=== PATIENT | male | born 1935 | race Caucasian/White ===

== ENCOUNTER 2017-02-19 12:00 | Emergency (ER) | payer BC ==
[2017-02-19 12:23] VITALS: BP 155/75
--- NOTE | 2017-02-19 12:45 | UC ---
Respiratory Complaint HPI - HPI Summary HPI Summary: This is an 81 yo gentleman with pulmonary fibrosis with associated pulmonary HTN and CHF who presents with complaints of arthralgias and SOB. Symptoms started last night. Some mild chills. The arthralgias are improved today. He does have a mild cough. He reports chronic hemoptysis, volume has increased slightly. No LE edema or weight gain. Reports decreased exercise tolerance over the last couple of days. No sick contacts. No CP. No GI sxs. - History of Current Complaint Chief Complaint: UCRespiratory Stated Complaint: SOB,CONGESTION - Allergies/Home Medications Allergies/Adverse Reactions: Allergies Allergy/AdvReac Type Severity Reaction Status Date / Time No Known Allergies Allergy Verified 02/19/17 12:12 Home Medications: Home Medications Ascorbic Acid TAB* [Vitamin C TAB*] 500 mg PO DAILY 02/19/17 [History Confirmed 02/19/17] Aspirin Low Dose CHEW TAB* [Aspirin Low Dose TAB*] 81 mg PO DAILY 02/19/17 [ History Confirmed 02/19/17] Atorvastatin* [Lipitor 20 MG*] 20 mg PO DAILY 02/19/17 [History Confirmed ] Bimatoprost 0.01% OPHTH (NF) [Lumigan 0.01% OPHTH (NF)] 1 drop BOTH EYES QPM [History Confirmed 02/19/17] Calcium Carbonate-Vitamin D [Calcium 600 + D 600-400 mg-Unit] 1 tab PO BID 02/19 [History Confirmed 02/19/17] Cholecalciferol TAB* [Vitamin D TAB*] 1,000 unit PO DAILY 02/19/17 [History Confirmed 02/19/17] Metoprolol Succinate [Toprol Xl] 25 mg PO DAILY 02/19/17 [History Confirmed ] Multiple Vitamins W/ Minerals [Centrum] 1 tab PO DAILY 02/19/17 [History Confirmed 02/19/17] Multiple Vitamins W/ Minerals [Ocuvite Eye Health Formul] 1 cap PO DAILY [History Confirmed 02/19/17] Saxis-3 Fatty Acids [Fish Oil] 1,000 mg PO DAILY 02/19/17 [History Confirmed ] Sildenafil (PULMONARY)(NF) [Revatio (NF)] 20 mg PO TID 02/19/17 [History Confirmed 02/19/17] Timolol 0.5% OPTH.BONNIE* [Timoptic 0.5% Opth*] 1 drop RIGHT EYE DAILY 02/19/17 [ History Confirmed 02/19/17] PMH/Surg Hx/FS Hx/Imm Hx Previously Healthy: No - pulmonary fibrosis, pulmonary HTN, CHF - Surgical History Surgical History: None - Family History Known Family History: Positive: Cardiac Disease - Social History Alcohol Use: Daily Alcohol Amount: 1 daily Substance Use Type: None Smoking Status (MU): Former Smoker Amount Used/How Often: <1 PPD Length of Time of Smoking/Using Tobacco: 25 Years When Did the Patient Quit Smoking/Using Tobacco: ~1981 - Immunization History Most Recent Influenza Vaccination: August 2016 Most Recent Pneumonia Vaccination: "Current" Review of Systems Constitutional: Chills, Fatigue Skin: Negative Eyes: Negative ENT: Negative Respiratory: Shortness Of Breath Cardiovascular: Negative Gastrointestinal: Negative Genitourinary: Negative Motor: Negative Neurovascular: Negative Musculoskeletal: Arthralgia Neurological: Negative Psychological: Negative All Other Systems Reviewed And Are Negative: Yes Physical Exam Triage Information Reviewed: Yes Appearance: Well-Appearing Vital Signs: Initial Vital Signs Temp 98.6 F 02/19/17 12:11 Pulse 70 02/19/17 12:11 Resp 16 02/19/17 12:11 BP 155/75 02/19/17 12:11 Pulse Ox 90 02/19/17 12:11 Vital Signs Reviewed: Yes ENT: Positive: Normal ENT inspection Neck: Positive: Supple, Nontender, No Lymphadenopathy Respiratory: Positive: Chest non-tender, Crackles - RLL. Negative: Rhonchi, Wheezing Cardiovascular: Positive: RRR, No Murmur Abdominal Exam: Normal Musculoskeletal: Positive: No Edema UC Diagnostic Evaluation - Laboratory O2 Sat by Pulse Oximetry: 90 Diagnostic Studies Comment: CXR - chronic interstitial changes, likely new bibasilar atelectasis v. infiltrate. Influenza rapid screen - neg Re-Evaluation - Re-Evaluation First Eval Re-Evaluation Time: 13:15 Change: Unchanged Comment: Review XR results Respiratory Course/Dx - Course Course Of Treatment: This is an 81 yo male with pulmonary fibrosis and CHF who presented with chills, myalgias/arthralgias and increased SOB. CXR suggestive of possible infiltrate. Recommend treatment for CAP and close f/u with PCP. He is not terribly dypneic at this time and is ambulatory. He does not require hospitalization at this time. - Differential Dx/Diagnosis Differential Diagnosis/HQI/PQRI: Bronchitis, Pulmonary Edema, Laryngitis, Sinusitis Provider Diagnoses: 1. Community acquired pneumonia. 2. Pulmonary fibrosis Discharge - Discharge Plan Condition: Stable Disposition: HOME Prescriptions: Azithromycin TAB* [Zithromax TAB (Z-IQRA) 250 mg #6 tabs] 250 mg PO DAILY #5 tab Cefdinir [Cefdinir 300 MG CAP] 300 mg PO BID #20 cap Patient Education Materials: Community Acquired Pneumonia (ED) Referrals: Zehra Peterson MD [Primary Care Provider] - 3 Days Additional Instructions: Activity: As tolerated Instructions: 1. Please take antibiotics as directed 2. Please follow up with your PCP early next week 3. Please proceed to the ER with any worsening of your symptoms
--- NOTE | 2017-02-19 13:02 | RAD ---
HISTORY: Shortness of breath COMPARISONS: January 08, 2017 VIEWS: 2: Frontal dual-energy and lateral views of the chest. FINDINGS: CARDIOMEDIASTINAL SILHOUETTE: The cardiomediastinal silhouette is normal. JULISSA: The julissa are normal. PLEURA: The costophrenic angles are sharp. No pleural abnormalities are noted. LUNG PARENCHYMA: There is diffuse coarse reticular opacification. There is more confluent alveolar opacification of the lung bases bilaterally ABDOMEN: The upper abdomen is clear. There is no subphrenic gas. BONES AND SOFT TISSUES: No bone or soft tissue abnormalities are noted. OTHER: None. IMPRESSION: CHRONIC INTERSTITIAL CHANGES, WITH MORE FOCAL AIRSPACE OPACITIES IN THE LUNG BASES BILATERALLY SUGGESTIVE OF SUPERIMPOSED BILATERAL LOWER LOBE ATELECTASIS VERSUS CONSOLIDATION
== END 2017-02-19 13:31 | disposition home or self-care (01) ==
LOC: UCCORT 12:00
DX: J18.9 Pneumonia, unspecified organism (principal); J84.10 Pulmonary fibrosis, unspecified; I50.9 Heart failure, unspecified; I10 Essential (primary) hypertension; Z87.891 Personal history of nicotine dependence
CPT/HCPCS: 71020; 87502; 99213; G0463